=== PATIENT | female | born 1950 | race Caucasian/White ===

== ENCOUNTER → 2016-11-09 | Outpatient (REF) ==
[2015-04-12 16:56] VITALS: BP 171/83
[~2016-11-09] MED LIST: ALDACTONE50 M1 PO; HYTRIN 5MG C5 MG/CAP PO; KEPPRA 500MG500 MG PO; LOVASTATIN10 M1 PO; VERAPAMIL ER240 M1 PO
== END ==
LOC: LAB 11:32
DX: Z01.89 Encounter for other specified special examinations (principal)

== ENCOUNTER 2017-03-08 10:12 | Emergency (ER) | payer MEDICARE ==
[~2017-03-08] VITALS: Ht 152.4 cm; Wt 55.5 kg
[2017-03-08] MEDS ORDERED: ZESTRIL5 M1 PO (10:25)
[2017-03-08] MEDS ORDERED: ALPRAZOLAM0.25 MG PO (10:26)
[2017-03-08] MEDS ORDERED: MINOXIDIL 2.5 PO (10:26)
[2017-03-08] MEDS ORDERED: AMLODIPINE BESYL5 MG PO (10:26)
[2017-03-08] MEDS ORDERED: APRESOLINE 10MG10 MG PO (10:27)
[2017-03-08 11:14] LABS: EOS # 0.2 (0.04-0.40); EOS % 2.5 % (1.0-5.0); HEMATOCRIT 35.7 % (37.0-47.0); HEMOGLOBIN 12.1 g/dL (12.5-16.0); LYMPH# 1.4 (1.50-4.00); MEAN CELL VOLUME 82 fl (78-100); MEAN CORPUSCULAR HEMOGLOBIN 28 pg (27-31); MEAN CORPUSCULAR HGB CONC 34 g/dL (33-37); MEAN PLATELET VOLUME 10.1 fl (7.4-10.4); MONO # 0.6 (0.20-0.80); NEU # 7.2 (1.40-6.50); PLATELET COUNT 255 K/mm3 (130-400); RED BLOOD COUNT 4.35 M/mm3 (4.10-5.30); WHITE BLOOD COUNT 9.4 K/mm3 (4.8-10.8)
[2017-03-08 11:21] LABS: ALBUMIN 4.3 g/dL (3.5-5.0); BUN/CREATININE RATIO 16.3 (6.0-26.0); CALCIUM 9.8 mg/dL (8.4-10.2); POTASSIUM 4.8 mmol/L (3.6-5.0); TOTAL BILIRUBIN 1.2 mg/dL (0.2-1.3); TOTAL PROTEIN 8.6 g/dL (6.3-8.2)
[2017-03-08 12:28] VITALS: BP 180/99
== END 2017-03-08 12:20 | disposition home or self-care (01) ==
LOC: ED
PROVIDERS: Physician Assistant
DX: F41.9 Anxiety disorder, unspecified (principal); I12.9 Hypertensive chronic kidney disease with stage 1 through stage 4 chronic kidney disease, or unspecified chronic kidney disease; N18.4 Chronic kidney disease, stage 4 (severe); Z86.73 Personal history of transient ischemic attack (TIA), and cerebral infarction without residual deficits; I51.9 Heart disease, unspecified

== ENCOUNTER 2018-03-08 16:08 | Emergency (ER) | payer MEDICARE ==
[~2018-03-08] VITALS: Ht 152.4 cm; Wt 54.5 kg
[~2018-03-08 16:08] MED LIST changes: +ALPRAZOLAM0.25 MG PO; +AMLODIPINE BESYL5 MG PO; +APRESOLINE 10MG10 MG PO; +MINOXIDIL 2.5 PO; +ZESTRIL5 M1 PO
[2018-03-08 16:40] LABS: EOS # 0.3 (0.04-0.40); EOS % 2.2 % (1.0-5.0); HEMATOCRIT 33.6 % (37.0-47.0); HEMOGLOBIN 11.6 g/dL (12.5-16.0); MEAN CELL VOLUME 83 fl (78-100); MEAN CORPUSCULAR HEMOGLOBIN 29 pg (27-31); MEAN CORPUSCULAR HGB CONC 35 g/dL (33-37); MEAN PLATELET VOLUME 10.7 fl (7.4-10.4); MONO # 0.7 (0.20-0.80); NEU # 8.2 (1.40-6.50); PLATELET COUNT 248 K/mm3 (130-400); RED BLOOD COUNT 4.04 M/mm3 (4.10-5.30); RED CELL DISTRIBUTION WIDTH 13.3 % (11.5-14.5); WHITE BLOOD COUNT 11.1 K/mm3 (4.8-10.8)
[2018-03-08 16:52] LABS: ALBUMIN 4.2 g/dL (3.5-5.0); CALCIUM 9.3 mg/dL (8.4-10.2); TOTAL BILIRUBIN 1.4 mg/dL (0.2-1.3)
[2018-03-08 20:05] VITALS: BP 170/75
== END 2018-03-08 20:05 | disposition short-term general hospital (02) ==
LOC: ED 16:08
PROVIDERS: Family Medicine
DX: I16.1 Hypertensive emergency (principal); I12.9 Hypertensive chronic kidney disease with stage 1 through stage 4 chronic kidney disease, or unspecified chronic kidney disease; N18.9 Chronic kidney disease, unspecified; Z86.73 Personal history of transient ischemic attack (TIA), and cerebral infarction without residual deficits; F41.9 Anxiety disorder, unspecified
CPT/HCPCS: J2060; J7050

== ENCOUNTER 2018-03-17 23:54 | Emergency (ER) | payer MEDICARE ==
[~2018-03-17] VITALS: Ht 152.4 cm; Wt 53.0 kg
[2018-03-18] MEDS ORDERED: CIPRO500 M1 PO
[2018-03-18] MEDS ORDERED: ZESTRIL10 M1 PO
[2018-03-18] MEDS ORDERED: FLAGYL500 M1 PO (00:01)
[2018-03-18] MEDS ORDERED: COREG12.5 M1 PO (00:01)
[2018-03-18 01:03] LABS: EOS % 0.2 % (1.0-5.0); HEMATOCRIT 31.9 % (37.0-47.0); HEMOGLOBIN 10.6 g/dL (12.5-16.0); LYMPH# 1.6 (1.50-4.00); MEAN CELL VOLUME 86 fl (78-100); MEAN CORPUSCULAR HEMOGLOBIN 29 pg (27-31); MEAN CORPUSCULAR HGB CONC 33 g/dL (33-37); MEAN PLATELET VOLUME 10.8 fl (7.4-10.4); MONO # 1.1 (0.20-0.80); PLATELET COUNT 180 K/mm3 (130-400); RED BLOOD COUNT 3.72 M/mm3 (4.10-5.30); RED CELL DISTRIBUTION WIDTH 14.3 % (11.5-14.5); WHITE BLOOD COUNT 12.1 K/mm3 (4.8-10.8)
[2018-03-18 01:15] LABS: NEU # 9.3 (1.40-6.50)
[2018-03-18 01:17] LABS: CALCIUM 9.4 mg/dL (8.4-10.2); POTASSIUM 4.1 mmol/L (3.6-5.0); TOTAL BILIRUBIN 0.8 mg/dL (0.2-1.3); TOTAL PROTEIN 7.5 g/dL (6.3-8.2)
[2018-03-18 01:26] LABS: PARTIAL THROMBOPLASTIN TIME 24.8 SECONDS (21.0-32.0)
[2018-03-18 03:38] VITALS: BP 153/76
== END 2018-03-18 03:38 | disposition home or self-care (01) ==
LOC: ED 23:54
PROVIDERS: Nurse Practitioner
DX: I12.0 Hypertensive chronic kidney disease with stage 5 chronic kidney disease or end stage renal disease (principal); N18.6 End stage renal disease; Z99.2 Dependence on renal dialysis; K57.92 Diverticulitis of intestine, part unspecified, without perforation or abscess without bleeding; R41.82 Altered mental status, unspecified; Z86.73 Personal history of transient ischemic attack (TIA), and cerebral infarction without residual deficits; Z79.899 Other long term (current) drug therapy
CPT/HCPCS: J7050

== ENCOUNTER 2019-10-03 15:42 | Emergency (ER) | payer MEDICARE ==
[~2019-10-03] VITALS: Ht 152.4 cm; Wt 45.5 kg
[~2019-10-03 15:42] MED LIST changes: +CIPRO500 M1 PO; +COREG12.5 M1 PO; +FLAGYL500 M1 PO; +ZESTRIL10 M1 PO
[2019-10-03] MEDS ORDERED: AMLODIPINE BESYL5 MG PO (16:02)
[2019-10-03] MEDS ORDERED: CLONIDINE HYDR0.2 MG PO (16:02)
[2019-10-03] MEDS ORDERED: LOSARTAN POTAS100 MG PO (16:03)
[2019-10-03 16:22] LABS: HEMATOCRIT 38.7 % (37.0-47.0); HEMOGLOBIN 12.7 g/dL (12.5-16.0); MEAN CELL VOLUME 94 fl (78-100); MEAN CORPUSCULAR HEMOGLOBIN 31 pg (27-31); MEAN CORPUSCULAR HGB CONC 33 g/dL (33-37); MEAN PLATELET VOLUME 10.6 fl (7.4-10.4); PLATELET COUNT 197 K/mm3 (130-400); RED BLOOD COUNT 4.13 M/mm3 (4.10-5.30); RED CELL DISTRIBUTION WIDTH 15.1 % (11.5-14.5); WHITE BLOOD COUNT 8.2 K/mm3 (4.8-10.8)
[2019-10-03 16:28] LABS: POTASSIUM 3.7 mmol/L (3.5-5.1)
[2019-10-03 16:29] LABS: CALCIUM 9.2 mg/dL (8.3-10.5)
[2019-10-03 16:30] LABS: TOTAL PROTEIN 7.5 g/dL (6.2-8.1)
[2019-10-03 16:32] LABS: TOTAL BILIRUBIN 0.8 mg/dL (0.2-1.2)
[2019-10-03 16:37] LABS: LYMPHOCYTE 13 % (20-51); MONOCYTE 5 % (3-10); NEUTROPHILS 78 % (42-75)
[2019-10-03 16:39] LABS: LIPASE 34 U/L (8-78)
[2019-10-03 16:43] LABS: TROPONIN-I 0.03 ng/mL (<0.030)
[2019-10-03 17:01] LABS: PH-URINE 8.5 (5.0 - 8.0); URINE APPEARANCE CLEAR; URINE BILIRUBIN NEGATIVE (NEGATIVE); URINE COLOR YELLOW; URINE KETONE NEGATIVE (NEGATIVE); URINE PROTEIN(semi-quant) 1+ mg/dL (NEGATIVE)
[2019-10-03 17:02] LABS: URINE BLOOD TRACE (NEGATIVE); URINE LEUKOCYTE ESTERASE TRACE (NEGATIVE); URINE NITRATE NEGATIVE (NEGATIVE); URINE UROBILINOGEN NORMAL (NORMAL)
[2019-10-03 18:47] VITALS: BP 127/61
== END 2019-10-03 19:15 | disposition short-term general hospital (02) ==
LOC: ED 15:42
PROVIDERS: Family Medicine
DX: N39.0 Urinary tract infection, site not specified (principal); R41.82 Altered mental status, unspecified; F41.9 Anxiety disorder, unspecified; I12.9 Hypertensive chronic kidney disease with stage 1 through stage 4 chronic kidney disease, or unspecified chronic kidney disease; N18.9 Chronic kidney disease, unspecified; Z86.73 Personal history of transient ischemic attack (TIA), and cerebral infarction without residual deficits; Z88.8 Allergy status to other drugs, medicaments and biological substances
CPT/HCPCS: J0696